=== PATIENT | female | born 1995 | race Caucasian/White ===

== ENCOUNTER → 2024-06-18 | Outpatient (CLI) | payer BC ==
--- NOTE | 2024-06-18 15:52 | US ---
EXAMINATION TYPE: US pelvis complete transvag DATE OF EXAM: 06/18/2024 COMPARISON: NONE CLINICAL INDICATION: Female, 28 years old with history of N92.1 EXCESSIVE AND FREQUENT MEN; Patient h as irregular menses. Patient states she bleeds x a couple months at a time, and then she doesn't have a period for a couple months. G0. TECHNIQUE: Transvaginal (TV) and Transabdominal (TA) . Transabdominal grayscale sonographic images of the pelvis were acquired. Transvaginal sonographic im ages were medically necessary to better assess the following anatomy: left ovary, endo, and per order . Doppler imaging: Not performed. FINDINGS: Date of LMP: 03/29/2024 EXAM MEASUREMENTS: Uterus: 8.1 x 4.7 x 3.6 cm Endometrial Stripe: 1.1 cm Right Ovary: 4.6 x 3.1 x 2.4 cm Left Ovary: Not seen 1. Uterus: Anteverted Heterogeneous. Slightly limited exam. *Multiple subcentimeter complex areas seen in cervix. Anechoic fluid seen in cervix: 1.5 x 0.6 x 0.3 cm. 2. Endometrium: Measures 1.1 cm. Patient has very irregular periods. 3. Right Ovary: Appears wnl 4. Left Ovary: Not seen 5. Bilateral Adnexa: Appear wnl 6. Posterior cul-de-sac: Appears wnl Several Small nabothian cysts are present. IMPRESSION: No suspicious finding to account for patient's symptoms. Endometrial stripe thickness wit hin normal limits for secretory phase of menstrual cycle. O-RADS 2021 [email or web address] [email or web address], Workstation: [email or web address], 06/18/2024 3:50 PM
== END | disposition home or self-care (01) ==
LOC: RADUSWWP 15:10
PROVIDERS: ATTEND Emergency Medicine
DX: N92.1 Excessive and frequent menstruation with irregular cycle (principal); N88.8 Other specified noninflammatory disorders of cervix uteri
CPT/HCPCS: 76830; 76856